=== PATIENT | female | born 1960 | race Caucasian/White ===

== ENCOUNTER 2016-07-24 12:49 | Emergency (ER) | payer OTHER ==
[2016-07-24] MEDS ORDERED: ACETAMINOPHEN 500 MG TAB PO ONE (14:36)
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
[2016-07-24 15:31] LABS: COLOR YELLOW; LEUKOCYTE ESTERASE,URINE NEGATIVE (NEGATIVE); NITRITE,URINE NEGATIVE (NEGATIVE)
[2016-07-24 15:41] LABS: RBC,URINE NONE SEEN /hpf (0-3); WBC,URINE NONE SEEN /hpf (0-3)
[2016-07-24 15:42] VITALS: BP 133/67; PULSE 74; RESP 18; TEMP 98.1; O2SAT 96
== END 2016-07-24 15:46 | disposition home or self-care (01) ==
LOC: CED 12:49
DX: S16.1XXA Strain of muscle, fascia and tendon at neck level, initial encounter (principal); S39.012A Strain of muscle, fascia and tendon of lower back, initial encounter; V43.52XA Car driver injured in collision with other type car in traffic accident, initial encounter
CPT/HCPCS: 72100-PO; 72125-PO; 72170-PO; 81003-PO; 81015-PO; 99215-PO; G0463-PO

== ENCOUNTER → 2016-09-05 | Outpatient (CLI) | payer OTHER, MEDICARE | LOC: FIMAGING 15:57 | DX: Z12.31 Encounter for screening mammogram for malignant neoplasm of breast (principal); Z80.3 Family history of malignant neoplasm of breast | CPT/HCPCS: G0202 ==

== ENCOUNTER → 2017-01-15 | Outpatient (CLI) | payer OTHER, MEDICARE | LOC: CIMAGING 12:36 | PROVIDERS: ATTEND Internal Medicine Endocrinology, Diabetes & Metabolism | DX: E04.2 Nontoxic multinodular goiter (principal) | CPT/HCPCS: 76536-PO ==

== ENCOUNTER → 2017-12-16 | Outpatient (CLI) | payer OTHER, MEDICARE | LOC: FCPNEURO 20:00 | PROVIDERS: ATTEND Internal Medicine Sleep Medicine | DX: G47.33 Obstructive sleep apnea (adult) (pediatric) (principal) ==

== ENCOUNTER 2017-12-23 11:18 | Emergency (ER) | payer OTHER, MEDICARE ==
[2017-12-23 11:41] VITALS: BP 135/78
== END 2017-12-23 12:25 | disposition left against medical advice (07) ==
DX: S90.871A Other superficial bite of right foot, initial encounter (principal); W59.11XA Bitten by nonvenomous snake, initial encounter

== ENCOUNTER → 2018-02-21 | Outpatient (CLI) | payer OTHER, MEDICARE | LOC: FIMAGING 14:03 | PROVIDERS: ATTEND Internal Medicine Endocrinology, Diabetes & Metabolism | DX: E04.2 Nontoxic multinodular goiter (principal) ==

== ENCOUNTER → 2018-04-08 | Outpatient (CLI) | payer OTHER, MEDICARE | LOC: FIMAGING 11:55 | PROVIDERS: ATTEND Nurse Practitioner Adult Health | DX: Z12.31 Encounter for screening mammogram for malignant neoplasm of breast (principal) ==